=== PATIENT | female | born 1990 | race Hispanic/Latino ===

== ENCOUNTER 2023-09-06 18:51 | Emergency (ER) | payer OTHER ==
[~2023-09-06] VITALS: Ht 157.5 cm; Wt 80.1 kg
[2023-09-06 20:30] LABS: BASOPHILS 0.5 % (0-2); EOSINOPHILS 2.8 % (0-6); HEMATOCRIT 42.6 % (35.0-50.0); HEMOGLOBIN 14.1 g/dL (12.0-18.0); LYMPHOCYTES 31.1 % (24-44); MCH 28.4 (27-36); MCHC 33.2 g/dl (30-36); MCV 85.5 fl (81-99); MONOCYTES 6.9 % (0-12); NEUTROPHILS 58.7 % (39-80); PLATELET COUNT 298 K/uL (140-440); RBC 4.98 M/ul (4.3-5.7); RDW 13.5 (10.5-15.0)
[2023-09-06 20:43] LABS: ALBUMIN 3.7 g/dL (3.4-5.0); ALBUMIN/GLOBULIN RATIO 0.9 (1.1-2.4); ANION GAP 14.7 (7-21); BILIRUBIN, TOTAL 0.1 ng/dL (0.2-1.0); BUN/CREATININE RATIO 11.84 (6.0-28.6); CREATININE, SERUM 0.76 mg/dL (0.55-1.02); POTASSIUM 3.7 mmol/L (3.5-5.1); PROTEIN, TOTAL 7.8 g/dL (6.4-8.2)
[2023-09-06 21:19] LABS: BILIRUBIN, URINE NEGATIVE (negative); BLOOD/HGB, URINE NEGATIVE (Negative); KETONE, URINE NEGATIVE (Negative); LEUK ESTERASE, URINE NEGATIVE (negative); NITRITE, URINE NEGATIVE (negative); PH, URINE 5.5 (5-7)
[2023-09-06 22:47] VITALS: BP 120/87
== END 2023-09-06 22:47 | disposition home or self-care (01) ==
LOC: ED 18:51
PROVIDERS: Emergency Medicine
DX: N83.201 Unspecified ovarian cyst, right side (principal)
CPT/HCPCS: 36415; 74177; 80053; 81003; 84703; 85025; J2405; Q9967